=== PATIENT | female | born 1980 | race Caucasian/White ===

== ENCOUNTER 2017-04-21 12:18 | Observation (INO) | payer MEDICAID ==
[~2017-04-21] VITALS: Ht 157.5 cm; Wt 92.1 kg
[2017-04-21] MEDS ORDERED: PNV1TABL76 PO (13:11)
[2017-04-21] MEDS ORDERED: BETAMETHASONE ACET/BETAMET 30 MG/5 ML VIAL IM SCH (13:30)
[2017-04-21 13:38] LABS: BASOPHILS % 0.1 % (0.0-2.0); EOSINOPHILS % 1.5 % (0.0-5.0); HEMATOCRIT. 35.4 % (36.0-48.0); HEMOGLOBIN. 12.6 g/dL (12.0-16.0); LYMPHOCYTES % 15.3 % (20.0-50.0); MEAN CORPUSCULAR HEMOGLOBIN 32.2 pg (28.0-32.0); MEAN CORPUSCULAR VOLUME 90.4 fL (81.0-99.0); MEAN PLATELET VOLUME 7.4 fl (7.4-10.4); NEUTROPHILS % 76.1 % (40.0-76.0); PLATELET 242 x1000/uL (130-400); RED BLOOD CELL COUNT 3.92 mill/uL (4.2-5.4); RED CELL DISTRIBUTION WIDTH 13.7 % (11.6-14.6)
[2017-04-21 13:47] LABS: CHLORIDE 106 mEq/L (98-107)
[2017-04-21 13:59] LABS: KETONES URINE NEGATIVE (NEGATIVE); LEUKOCYTE ESTERASE URINE NEGATIVE (NEGATIVE); NITRITE URINE NEGATIVE (NEGATIVE); OCCULT BLOOD URINE NEGATIVE (NEGATIVE); PH URINE 5.5 (4.5-8.0); PROTEIN URINE 1+ (NEGATIVE); SPECIFIC GRAVITY URINE 1.025 (1.005-1.030)
[2017-04-21 14:00] LABS: D-DIMER 0.77 mg/L FEU (<0.50); INR 0.9; PARTIAL THROMBOPLASTIN TIME 27.6 sec (23.4-31.0); PROTHROMBIN TIME 9.9 sec (9.4-11.6)
[2017-04-21 14:01] LABS: CLARITY URINE HAZY (CLEAR); COLOR URINE YELLOW (YELLOW)
[2017-04-21] MEDS ORDERED: TERBUTALINE SULFATE 1MG/ML VIAL SUBCUT PRN (15:45)
== END 2017-04-21 16:10 | disposition home or self-care (01) ==
LOC: L&D 12:18
PROVIDERS: ADMIT Acupuncturist; ATTEND Acupuncturist
DX: O36.8130 Decreased fetal movements, third trimester, not applicable or unspecified (principal); Z3A.33 33 weeks gestation of pregnancy
CPT/HCPCS: 36415; 80053; 81003; 84550; 85025; 85379; 85384; 85610; 85730; 96372; G0378; J0702; J3105

== ENCOUNTER 2017-04-22 13:04 | Observation (INO) | payer MEDICAID ==
[~2017-04-22] VITALS: Ht 157.5 cm; Wt 92.1 kg
[~2017-04-22 13:04] MED LIST: PNV1TABL76 PO
[2017-04-22] MEDS ORDERED: BETAMETHASONE ACET/BETAMET 30 MG/5 ML VIAL IM SCH (13:30)
== END 2017-04-22 13:45 | disposition home or self-care (01) ==
LOC: L&D 13:04
DX: Z34.93 Encounter for supervision of normal pregnancy, unspecified, third trimester (principal); Z3A.34 34 weeks gestation of pregnancy
CPT/HCPCS: 96372; 99281; G0378; J0702